=== PATIENT | female | born 1940 | race Caucasian/White ===

== ENCOUNTER → 2017-07-08 | Outpatient (CLI) | payer MEDICARE, OTHER ==
[~2017-07-08] MED LIST: ACET325T14 PO; ACLI400A2 INH; ALBU2.5V11 NEB; ALBU8.5H5 INH; ALEN70TA5 PO; AMIL1TAB PO; AMLO10TA2 PO; ASPI-496 PO; ATOR40TA78 PO; BUDE10.2 INH; CEFD300C37 PO; DEXT1TAB7 PO; FLUT1DIS3 INH; FURO-92 PO; FURO40TA6 PO; GLUC1KIT IM; GLYB5TAB3 PO; GUAI1CAP19 PO; INSU100V13 SQ; INSU100V5 SQ-INSULIN; LOPE2CAP PO; LOSA100T6 PO; METF500T4 PO; METO25TA2 PO; METO50TA82 PO; NICO-586 TD; NYST15PO9 TP; OXYC5TAB3 PO; PANT40TA5 PO; PRED20TA PO; RIVA15TA PO; SITA100T PO; TEMA15CA PO; TERA1CAP3 PO; WARF2TAB7 PO; WARF5TAB7 PO
== END | disposition home or self-care (01) ==
LOC: CVU 10:38
PROVIDERS: ATTEND Internal Medicine Cardiovascular Disease
DX: I25.5 Ischemic cardiomyopathy (principal); E11.9 Type 2 diabetes mellitus without complications; I08.1 Rheumatic disorders of both mitral and tricuspid valves; I10 Essential (primary) hypertension; F17.210 Nicotine dependence, cigarettes, uncomplicated
CPT/HCPCS: 93306

== ENCOUNTER → 2017-11-19 | Outpatient (CLI) | payer MEDICARE, OTHER ==
[~2017-11-19] MED LIST changes: +WARF-36 PO; -WARF2TAB7 PO; +WARF2TAB99 PO; -WARF5TAB7 PO
== END | disposition home or self-care (01) ==
LOC: CVU 13:58
PROVIDERS: ATTEND Surgery
DX: I70.203 Unspecified atherosclerosis of native arteries of extremities, bilateral legs (principal); I10 Essential (primary) hypertension; E11.51 Type 2 diabetes mellitus with diabetic peripheral angiopathy without gangrene; E78.5 Hyperlipidemia, unspecified; J44.9 Chronic obstructive pulmonary disease, unspecified; Z99.81 Dependence on supplemental oxygen; Z87.891 Personal history of nicotine dependence; I70.0 Atherosclerosis of aorta
CPT/HCPCS: 93922; 93925; 93978

== ENCOUNTER → 2017-12-09 | Outpatient (CLI) | payer MEDICARE, OTHER ==
[~2017-12-09] MED LIST changes: +APIX5TAB PO; +CHOL200024 PO; +CYAN250013 PO; +FOLI0.8T2 PO
[2017-12-09 12:35] LABS: BASOPHILS # (AUTO) 0.04 x10^3/uL (0-0.1); BASOPHILS % (AUTO) 0 % (0-1); EOSINOPHILS % (AUTO) 1 % (1-7); LYMPHOCYTES # (AUTO) 2.23 x10^3/uL (1-3.4); LYMPHOCYTES % (AUTO) 18 % (22-44); MD NO; MEAN CORPUSCULAR HEMOGLOBIN 31.9 pg (27.0-34.8); MEAN CORPUSCULAR HGB CONC 33.4 g/dL (32.4-35.8); MEAN CORPUSCULAR VOLUME 95.4 fL (80-100); MEAN PLATELET VOLUME 10.1 fL (7.4-10.4); MONOCYTES # (AUTO) 0.84 x10^3/uL (0.2-0.8); MONOCYTES % (AUTO) 7 % (2-9); NEUTROPHILS # (AUTO) 9.18 x10^3/uL (1.8-6.8); NEUTROPHILS % (AUTO) 74 % (42-75); PLATELET COUNT 134 x10^3/uL (130-400); RED BLOOD COUNT 4.97 x10^6/uL (3.82-5.3); RED CELL DISTRIBUTION WIDTH 15.7 % (9.6-15.2)
[2017-12-09 12:39] LABS: INTERNATIONAL NORMALIZED RATIO 1.01 (0.93-1.1); PROTHROMBIN TIME 10.4 Seconds (9.6-11.5)
[2017-12-09 12:45] LABS: ALBUMIN 3.2 g/dL (3.4-5.0); ANION GAP 5 mmol/L (5-15); CHLORIDE 104 mmol/L (98-107)
[2017-12-09 12:51] LABS: ALANINE AMINOTRANSFERASE 23 U/L (12-78); ALKALINE PHOSPHATASE 93 U/L (45-117); BILIRUBIN,TOTAL 0.8 mg/dL (0.2-1.0); CREATININE 1.37 mg/dL (0.55-1.02); TOTAL PROTEIN 7.4 g/dL (6.4-8.2)
== END | disposition home or self-care (01) ==
LOC: STAR 10:47
PROVIDERS: ATTEND Surgery
DX: Z01.818 Encounter for other preprocedural examination (principal); R94.31 Abnormal electrocardiogram [ECG] [EKG]
CPT/HCPCS: 36415; 80053; 85025; 85610; 85730; 93005

== ENCOUNTER 2018-03-03 12:17 | Inpatient (IN) | payer MEDICARE, OTHER ==
[~2018-03-03] VITALS: Ht 144.8 cm; Wt 70.4 kg
[~2018-03-03 12:17] MED LIST changes: -AMLO10TA2 PO; +AMLO10TA6 PO; -LOSA100T6 PO; +LOSA100T7 PO; +METF500T17 PO; -METF500T4 PO
[2018-03-03] MEDS ORDERED: LACTATED RINGERS 1,000 ML IV SCH ×2 (12:56→19:00)
[2018-03-03] MEDS ORDERED: CARV12.52 PO (12:58)
[2018-03-03] MEDS ORDERED: PROTAMINE SULFATE 10 MG/ML, 5ML ONE (13:01)
[2018-03-03] MEDS ORDERED: HEPARIN 5,000 UNITS/ML, 1ML ONE (13:01)
[2018-03-03] MEDS ORDERED: FENTANYL PF 100 MCG/2ML ONE ×2 (13:01→14:21)
[2018-03-03] MEDS ORDERED: THROMBIN 20,000 UNIT VIAL TP ONE (13:01)
[2018-03-03] MEDS ORDERED: HEPARIN 1,000 UNITS/ML, 30ML ONE (13:02)
[2018-03-03] MEDS ORDERED: GLYCOPYRROLATE 0.2MG/1ML, 5ML ONE (13:04)
[2018-03-03] MEDS ORDERED: CEFAZOLIN 1,000 MG ONE (13:04)
[2018-03-03] MEDS ORDERED: PROPOFOL 10 MG/ML, 20ML ONE (13:04)
[2018-03-03] MEDS ORDERED: NEOSTIGMINE 1 MG/ML, 10ML ONE (13:04)
[2018-03-03] MEDS ORDERED: ONDANSETRON 2MG/ML, 2ML ONE (13:04)
[2018-03-03] MEDS ORDERED: DEXAMETHASONE 4 MG/ML, 1ML ONE (13:04)
[2018-03-03] MEDS ORDERED: ROCURONIUM 10MG/ML,5ML ONE (13:04)
[2018-03-03] MEDS ORDERED: SUCCINYLCHOLINE 20 MG/ML, 10ML ONE (13:04)
[2018-03-03 13:24] VITALS: BP 164/78
[2018-03-03] MEDS ORDERED: METOPROLOL 1 MG/ML, 5ML IV PRN (13:30)
[2018-03-03] MEDS ORDERED: PROMETHAZINE 25 MG/ML, 1ML IM PRN (13:30)
[2018-03-03] MEDS ORDERED: FENTANYL PF 100 MCG/2ML IV PRN (13:30)
[2018-03-03] MEDS ORDERED: OXYcodone 5 MG/5 ML ORAL.SOL UDC PO PRN (13:30)
[2018-03-03] MEDS ORDERED: PROMETHAZINE 25 MG SUPP PR PRN (13:30)
[2018-03-03] MEDS ORDERED: LORazepam 2 MG/ML, 1ML IVPush PRN (13:30)
[2018-03-03] MEDS ORDERED: hydrALAzine 20 MG/ML, 1ML IV PRN (13:30)
[2018-03-03] MEDS ORDERED: MORPHINE SULFATE 4 MG/ML, 1ML IVPush PRN (13:30)
[2018-03-03] MEDS ORDERED: ACETAMINOPHEN 325 MG TABLET PO PRN (13:30)
[2018-03-03] MEDS ORDERED: ONDANSETRON ODT 8 MG PO PRN (13:30)
[2018-03-03] MEDS ORDERED: LABETALOL 5MG/ML, 20ML IV PRN (13:30)
[2018-03-03] MEDS ORDERED: VANCOMYCIN 1,000 MG ONE (13:33)
[2018-03-03] MEDS ORDERED: LIDOCAINE 4%, 4 ML SYR/CANN TP ONE (13:34)
[2018-03-03] MEDS ORDERED: PROMETHAZINE 25 MG/ML, 1ML ONE (14:20)
[2018-03-03] MEDS ORDERED: ACETAMINOPHEN 650 MG/20.3 ML UDC ONE (14:20)
[2018-03-03] MEDS ORDERED: hydrALAzine 20 MG/ML, 1ML ONE (14:20)
[2018-03-03] MEDS ORDERED: LORazepam 2 MG/ML, 1ML ONE (14:21)
[2018-03-03] MEDS ORDERED: ALBUTEROL SULFATE 2.5 MG/3 ML NPPB STA (14:33)
[2018-03-03] MEDS: PROMETHAZINE 25 MG/ML, 1ML IV PRN ×2 (14:36→15:06)
[2018-03-03] MEDS ORDERED: ALBUTEROL SULFATE 2.5 MG/3 ML ONE (15:10)
[2018-03-03] MEDS ORDERED: ONDANSETRON 2MG/ML, 2ML IV PRN (19:00)
[2018-03-03] MEDS ORDERED: morphine SULFATE 10 MG/ML, 1ML IV PRN (19:00)
[2018-03-03] MEDS ORDERED: HYDROcodone/APAP 5/325 TABLET PO PRN (19:00)
[2018-03-03 19:36] VITALS: BP 138/80
[2018-03-03] MEDS ORDERED: ATORVASTATIN 40 MG TABLET PO SCH (21:00)
[2018-03-03] MEDS ORDERED: SODIUM CHLORIDE FLUSH 10ML SYR IVF SCH (21:00)
[2018-03-03] MEDS ORDERED: ACETAMINOPHEN 325 MG TABLET PO SCH (21:00)
[2018-03-03] MEDS ORDERED: INSULIN GLARGINE 100 UNITS/ML, PEN SQ-INSULIN SCH (21:00)
[2018-03-04] MEDS ORDERED: CHOLECALCIFEROL 1,000 UNIT TABLET PO SCH (09:00)
[2018-03-04] MEDS ORDERED: FOLIC ACID 1 MG TABLET PO SCH (09:00)
[2018-03-04] MEDS ORDERED: CARVEDILOL 12.5 MG TABLET PO SCH (09:00)
[2018-03-04] MEDS ORDERED: APIXABAN 5 MG TABLET PO SCH (09:00)
[2018-03-04] MEDS ORDERED: FUROSEMIDE 40 MG TABLET PO SCH (09:00)
[2018-03-04] MEDS ORDERED: LOSARTAN 50MG TABLET PO SCH (09:00)
== END 2018-03-03 20:30 | disposition home or self-care (01) | DRG 581 ==
LOC: ORIP 12:17 → EDSTATUS 14:00 → 4NOR 18:36
PROVIDERS: ADMIT Surgery; ATTEND Surgery
PROC: 0W9F0ZZ Drainage of Abdominal Wall, Open Approach (ICD-10-PCS; principal; 2018-03-03 14:00)
DX: M79.3 Panniculitis, unspecified (principal); E66.9 Obesity, unspecified; J44.9 Chronic obstructive pulmonary disease, unspecified; E11.22 Type 2 diabetes mellitus with diabetic chronic kidney disease; N18.9 Chronic kidney disease, unspecified; I12.9 Hypertensive chronic kidney disease with stage 1 through stage 4 chronic kidney disease, or unspecified chronic kidney disease; M19.90 Unspecified osteoarthritis, unspecified site; Z79.4 Long term (current) use of insulin; Z68.33 Body mass index [BMI] 33.0-33.9, adult; Z99.81 Dependence on supplemental oxygen; Z95.820 Peripheral vascular angioplasty status with implants and grafts
CPT/HCPCS: 82962; 87070; 87075; 87077; 87205; 94640; G0378; J0690; J1100; J1644; J2405; J2550; J2704; J2710; J2720; J3010; J3370; J3490; J7613; J0330; J0360; J2060; J7120

== ENCOUNTER 2018-03-12 14:58 | Inpatient (IN) | payer MEDICARE, OTHER ==
[~2018-03-12] VITALS: Ht 144.8 cm; Wt 69.4 kg
[~2018-03-12 14:58] MED LIST changes: +CARV12.52 PO
[2018-03-12 15:43] LABS: BASOPHILS # (AUTO) 0.06 x10^3/uL (0-0.1); BASOPHILS % (AUTO) 0 % (0-1); EOSINOPHILS # (AUTO) 0.07 x10^3/uL (0-0.4); EOSINOPHILS % (AUTO) 1 % (1-7); LYMPHOCYTES # (AUTO) 1.67 x10^3/uL (1-3.4); LYMPHOCYTES % (AUTO) 12 % (22-44); MD NO; MEAN CORPUSCULAR HEMOGLOBIN 31.7 pg (27.0-34.8); MEAN CORPUSCULAR HGB CONC 33.9 g/dL (32.4-35.8); MEAN CORPUSCULAR VOLUME 93.3 fL (80-100); MEAN PLATELET VOLUME 9.1 fL (7.4-10.4); MONOCYTES # (AUTO) 1.22 x10^3/uL (0.2-0.8); MONOCYTES % (AUTO) 9 % (2-9); NEUTROPHILS # (AUTO) 11.13 x10^3/uL (1.8-6.8); NEUTROPHILS % (AUTO) 79 % (42-75); PLATELET COUNT 159 x10^3/uL (130-400); RED BLOOD COUNT 4.93 x10^6/uL (3.82-5.3); RED CELL DISTRIBUTION WIDTH 14.4 % (9.6-15.2)
[2018-03-12 15:49] LABS: ALBUMIN 2.9 g/dL (3.4-5.0); ANION GAP 6 mmol/L (5-15); CHLORIDE 105 mmol/L (98-107); CREATININE 1.29 mg/dL (0.55-1.02)
[2018-03-12 16:07] LABS: CULTURE INDICATED? NO; MICROSCOPIC NOT IND
[2018-03-12] MEDS ORDERED: VANCOMYCIN PER PHARMACY MC PRN ×2 (17:00→18:30)
[2018-03-12] MEDS ORDERED: VANCOMYCIN 1,400 MG in SODIUM CHLORIDE 0.9% 250 ML IV ONE (17:00)
[2018-03-12] MEDS ORDERED: AMPICILLIN/SULBACTAM 3 GM in SODIUM CHLORIDE 0.9% 100 ML IV ONE (17:00)
[2018-03-12] MEDS ORDERED: PHARMACOKINETIC CONSULTATION MC ONE ×2 (17:00→19:00)
[2018-03-12] MEDS ORDERED: CARV12.52 PO (17:13)
[2018-03-12] MEDS ORDERED: LOSA100T7 PO (17:13)
[2018-03-12] MEDS ORDERED: CLIN300C8 PO (17:13)
[2018-03-12] MEDS ORDERED: hydrALAzine 20 MG/ML, 1ML IV ONE (18:00)
[2018-03-12] MEDS ORDERED: hydrALAzine 20 MG/ML, 1ML ONE (18:18)
[2018-03-12] MEDS ORDERED: ONDANSETRON ODT 4 MG PO PRN (18:30)
[2018-03-12] MEDS ORDERED: VANCOMYCIN 1,000 MG in SODIUM CHLORIDE 0.9% 250 ML IVPB SCH (18:30)
[2018-03-12] MEDS ORDERED: ONDANSETRON 2MG/ML, 2ML IVPush PRN (18:30)
[2018-03-12] MEDS ORDERED: AMPICILLIN/SULBACTAM 3 GM in SODIUM CHLORIDE 0.9% 100 ML IV SCH (18:30)
[2018-03-12] MEDS ORDERED: LABETALOL 5MG/ML, 20ML IVPush PRN (18:30)
[2018-03-12] MEDS ORDERED: hydrALAzine 20 MG/ML, 1ML IVPush PRN (18:30)
[2018-03-12] MEDS ORDERED: DOCUSATE 100 MG CAPSULE PO PRN (18:30)
[2018-03-12] MEDS ORDERED: PHARMACOKINETIC MONITORING MC PRN (19:00)
[2018-03-12 19:12] VITALS: BP 177/78
[2018-03-12 19:35] LABS: HEMOGLOBIN A1C 6.8 % (4.2-6.3)
[2018-03-12] MEDS: ACETAMINOPHEN 325 MG TABLET PO PRN (20:01)
[2018-03-12] MEDS: ATORVASTATIN 40 MG TABLET PO SCH (20:02)
[2018-03-12] MEDS: CARVEDILOL 12.5 MG TABLET PO SCH (20:02)
[2018-03-12] MEDS: NICOTINE 7 MG/24 HR PATCH.TD24 TD SCH (20:28)
[2018-03-12] MEDS: INSULIN REGULAR 100 UNITS/ML, 3ML VIAL SQ-INSULIN SCH (20:40)
[2018-03-12] MEDS: INSULIN GLARGINE 100 UNITS/ML, PEN SQ-INSULIN SCH (22:00)
[2018-03-12 22:10] VITALS: BP 127/63
[2018-03-13 00:48] VITALS: BP 138/68
[2018-03-13] MEDS: ACETAMINOPHEN 325 MG TABLET PO PRN ×5 (02:18→22:47)
[2018-03-13 03:03] LABS: MICROSCOPIC INDICATED
[2018-03-13 03:11] LABS: CULTURE INDICATED? NO
[2018-03-13 05:04] LABS: BASOPHILS # (AUTO) 0.09 x10^3/uL (0-0.1); BASOPHILS % (AUTO) 1 % (0-1); EOSINOPHILS # (AUTO) 0.14 x10^3/uL (0-0.4); EOSINOPHILS % (AUTO) 1 % (1-7); LYMPHOCYTES # (AUTO) 1.97 x10^3/uL (1-3.4); LYMPHOCYTES % (AUTO) 17 % (22-44); MD NO; MEAN CORPUSCULAR HEMOGLOBIN 31.4 pg (27.0-34.8); MEAN CORPUSCULAR HGB CONC 33.5 g/dL (32.4-35.8); MEAN CORPUSCULAR VOLUME 93.7 fL (80-100); MEAN PLATELET VOLUME 9.1 fL (7.4-10.4); MONOCYTES % (AUTO) 11 % (2-9); NEUTROPHILS # (AUTO) 8.06 x10^3/uL (1.8-6.8); NEUTROPHILS % (AUTO) 70 % (42-75); PLATELET COUNT 155 x10^3/uL (130-400); RED CELL DISTRIBUTION WIDTH 14.4 % (9.6-15.2)
[2018-03-13 05:14] LABS: ANION GAP 7 mmol/L (5-15); CALCIUM 8.2 mg/dL (8.5-10.1); CHLORIDE 108 mmol/L (98-107); CREATININE 1.44 mg/dL (0.55-1.02)
[2018-03-13 05:24] LABS: THYROID STIMULATING HORMONE 0.953 mIU/L (0.358-3.740)
[2018-03-13] MEDS: INSULIN REGULAR 100 UNITS/ML, 3ML VIAL SQ-INSULIN SCH ×4 (05:44→20:00)
[2018-03-13 07:07] VITALS: BP 148/75
[2018-03-13] MEDS ORDERED: FUROSEMIDE 40 MG TABLET PO SCH (09:00)
[2018-03-13] MEDS ORDERED: SODIUM CHLORIDE 0.9% 1,000 ML IV ONE (09:00)
[2018-03-13] MEDS: FOLIC ACID 1 MG TABLET PO SCH (09:00)
[2018-03-13] MEDS: CYANOCOBALAMIN 1,000 MCG TABLET PO SCH (09:00)
[2018-03-13] MEDS: CARVEDILOL 12.5 MG TABLET PO SCH ×2 (09:00→19:43)
[2018-03-13] MEDS: LOSARTAN 50MG TABLET PO SCH (09:00)
[2018-03-13] MEDS: LINAGLIPTIN 5 MG TAB PO SCH (09:00)
[2018-03-13] MEDS: INSULIN GLARGINE 100 UNITS/ML, PEN SQ-INSULIN SCH ×2 (09:00→20:00)
[2018-03-13] MEDS: CHOLECALCIFEROL 1,000 UNIT TABLET PO SCH (09:00)
[2018-03-13 14:01] VITALS: BP 151/79
[2018-03-13] MEDS ORDERED: MORPHINE SULFATE 4 MG/ML, 1ML ONE (14:20)
[2018-03-13] MEDS ORDERED: MORPHINE SULFATE 4 MG/ML, 1ML IVPush ONE (14:30)
[2018-03-13] MEDS ORDERED: AMPICILLIN/SULBACTAM 3 GM in SODIUM CHLORIDE 0.9% 100 ML IV SCH (17:00)
[2018-03-13] MEDS: CLINDAMYCIN 300 MG CAPSULE PO SCH ×2 (18:14→23:09)
[2018-03-13 19:25] VITALS: BP 172/71
[2018-03-13] MEDS: ATORVASTATIN 40 MG TABLET PO SCH (19:42)
[2018-03-13] MEDS: NICOTINE 7 MG/24 HR PATCH.TD24 TD SCH (19:42)
[2018-03-13] MEDS: APIXABAN 5 MG TABLET PO SCH (19:43)
[2018-03-13 21:59] VITALS: BP 157/72
[2018-03-14 01:00] VITALS: BP 163/78
[2018-03-14] MEDS ORDERED: VANCOMYCIN 1,400 MG in SODIUM CHLORIDE 0.9% 250 ML IV SCH ×2 (05:00→17:00)
[2018-03-14] MEDS: ACETAMINOPHEN 325 MG TABLET PO PRN ×4 (05:15→21:49)
[2018-03-14] MEDS: CLINDAMYCIN 300 MG CAPSULE PO SCH ×4 (05:15→23:50)
[2018-03-14 05:19] LABS: CHLORIDE 109 mmol/L (98-107)
[2018-03-14 05:43] LABS: ALBUMIN 2.2 g/dL (3.4-5.0); ANION GAP 8 mmol/L (5-15); CALCIUM 8.3 mg/dL (8.5-10.1); CREATININE 1.08 mg/dL (0.55-1.02)
[2018-03-14] MEDS: INSULIN REGULAR 100 UNITS/ML, 3ML VIAL SQ-INSULIN SCH ×4 (06:33→21:56)
[2018-03-14 07:22] VITALS: BP 162/74
[2018-03-14] MEDS: INSULIN GLARGINE 100 UNITS/ML, PEN SQ-INSULIN SCH ×2 (08:37→22:14)
[2018-03-14] MEDS: APIXABAN 5 MG TABLET PO SCH ×2 (08:38→21:48)
[2018-03-14] MEDS: CARVEDILOL 12.5 MG TABLET PO SCH ×2 (08:38→21:49)
[2018-03-14] MEDS: FOLIC ACID 1 MG TABLET PO SCH (08:38)
[2018-03-14] MEDS: CHOLECALCIFEROL 1,000 UNIT TABLET PO SCH (08:38)
[2018-03-14] MEDS: LOSARTAN 50MG TABLET PO SCH (08:38)
[2018-03-14] MEDS: LINAGLIPTIN 5 MG TAB PO SCH (08:39)
[2018-03-14] MEDS: CYANOCOBALAMIN 1,000 MCG TABLET PO SCH (08:41)
[2018-03-14 14:08] VITALS: BP 149/70
[2018-03-14 19:14] VITALS: BP 166/80
[2018-03-14] MEDS: ATORVASTATIN 40 MG TABLET PO SCH (21:49)
[2018-03-14] MEDS: NICOTINE 7 MG/24 HR PATCH.TD24 TD SCH (21:49)
[2018-03-15 02:12] VITALS: BP 159/71
[2018-03-15] MEDS: ACETAMINOPHEN 325 MG TABLET PO PRN ×5 (02:29→20:44)
[2018-03-15] MEDS: CLINDAMYCIN 300 MG CAPSULE PO SCH ×3 (05:52→18:38)
[2018-03-15] MEDS: INSULIN REGULAR 100 UNITS/ML, 3ML VIAL SQ-INSULIN SCH ×4 (07:00→20:58)
[2018-03-15 07:34] VITALS: BP 163/63
[2018-03-15] MEDS: CHOLECALCIFEROL 1,000 UNIT TABLET PO SCH (10:00)
[2018-03-15] MEDS: CYANOCOBALAMIN 1,000 MCG TABLET PO SCH (10:00)
[2018-03-15] MEDS: LINAGLIPTIN 5 MG TAB PO SCH (10:00)
[2018-03-15] MEDS: CARVEDILOL 12.5 MG TABLET PO SCH ×2 (10:01→20:45)
[2018-03-15] MEDS: APIXABAN 5 MG TABLET PO SCH ×2 (10:01→20:44)
[2018-03-15] MEDS: FOLIC ACID 1 MG TABLET PO SCH (10:01)
[2018-03-15] MEDS: LOSARTAN 50MG TABLET PO SCH (10:01)
[2018-03-15] MEDS: INSULIN GLARGINE 100 UNITS/ML, PEN SQ-INSULIN SCH ×2 (10:06→21:51)
[2018-03-15 12:49] VITALS: BP 157/68
[2018-03-15 20:30] VITALS: BP 184/72
[2018-03-15] MEDS: ATORVASTATIN 40 MG TABLET PO SCH (20:45)
[2018-03-15] MEDS: NICOTINE 7 MG/24 HR PATCH.TD24 TD SCH (20:45)
[2018-03-15 22:09] VITALS: BP 172/86
[2018-03-16] MEDS: CLINDAMYCIN 300 MG CAPSULE PO SCH ×4 (00:29→17:46)
[2018-03-16] MEDS: ACETAMINOPHEN 325 MG TABLET PO PRN ×4 (00:36→17:46)
[2018-03-16 02:35] VITALS: BP 168/65
[2018-03-16] MEDS: INSULIN REGULAR 100 UNITS/ML, 3ML VIAL SQ-INSULIN SCH ×3 (06:30→16:00)
[2018-03-16 07:19] VITALS: BP 151/67
[2018-03-16] MEDS ORDERED: AMLODIPINE 5 MG TABLET PO SCH (09:00)
[2018-03-16] MEDS: CHOLECALCIFEROL 1,000 UNIT TABLET PO SCH (09:31)
[2018-03-16] MEDS: APIXABAN 5 MG TABLET PO SCH (09:31)
[2018-03-16] MEDS: CARVEDILOL 12.5 MG TABLET PO SCH (09:32)
[2018-03-16] MEDS: LINAGLIPTIN 5 MG TAB PO SCH (09:32)
[2018-03-16] MEDS: FOLIC ACID 1 MG TABLET PO SCH (09:32)
[2018-03-16] MEDS: LOSARTAN 50MG TABLET PO SCH (09:33)
[2018-03-16] MEDS: CYANOCOBALAMIN 1,000 MCG TABLET PO SCH (09:41)
[2018-03-16] MEDS: INSULIN GLARGINE 100 UNITS/ML, PEN SQ-INSULIN SCH (09:42)
[2018-03-16] MEDS ORDERED: MORPHINE SULFATE 4 MG/ML, 1ML ONE (10:38)
[2018-03-16 12:51] VITALS: BP 145/67
[2018-03-16] MEDS ORDERED: AMLO5TAB7 PO (14:10)
[2018-03-16] MEDS ORDERED: CARV12.543 PO (14:10)
[2018-03-16] MEDS ORDERED: CLIN300C8 PO (14:10)
[2018-03-16 19:49] VITALS: BP 167/68
== END 2018-03-16 20:40 | disposition home health service (06) | DRG 862 ==
LOC: ED 16:59 → EDIP 17:00 → ED 17:19 → 4NOR 18:16
PROVIDERS: ADMIT Internal Medicine; ATTEND Internal Medicine
DX: T81.4XXA Infection following a procedure, initial encounter (principal); A41.9 Sepsis, unspecified organism; I13.0 Hypertensive heart and chronic kidney disease with heart failure and stage 1 through stage 4 chronic kidney disease, or unspecified chronic kidney disease; L03.314 Cellulitis of groin; A46 Erysipelas; E11.22 Type 2 diabetes mellitus with diabetic chronic kidney disease; E11.51 Type 2 diabetes mellitus with diabetic peripheral angiopathy without gangrene; E78.00 Pure hypercholesterolemia, unspecified; E78.5 Hyperlipidemia, unspecified; F17.210 Nicotine dependence, cigarettes, uncomplicated; I16.0 Hypertensive urgency; Y83.8 Other surgical procedures as the cause of abnormal reaction of the patient, or of later complication, without mention of misadventure at the time of the procedure; I50.9 Heart failure, unspecified; J44.9 Chronic obstructive pulmonary disease, unspecified; N18.9 Chronic kidney disease, unspecified; Z79.01 Long term (current) use of anticoagulants; Z79.4 Long term (current) use of insulin; Z86.718 Personal history of other venous thrombosis and embolism; Z90.710 Acquired absence of both cervix and uterus; Z90.5 Acquired absence of kidney; Z90.49 Acquired absence of other specified parts of digestive tract; Z82.49 Family history of ischemic heart disease and other diseases of the circulatory system; Z83.3 Family history of diabetes mellitus; Y92.89 Other specified places as the place of occurrence of the external cause
CPT/HCPCS: 36415; 80048; 80069; 81001; 81003; 82040; 82962; 83036; 84443; 85025; 87040; 87070; 87077; 87186; 87205; 99285; G0378; J0295; J1815; J2405; J3370; J0360; J7050

== ENCOUNTER → 2018-11-04 | Outpatient (CLI) | payer MEDICARE, OTHER ==
[~2018-11-04] MED LIST changes: -ALEN70TA5 PO; +ALEN70TA6 PO; +AMLO-150 PO; -AMLO10TA6 PO; +AMLO10TA8 PO; +CARV12.543 PO; +CLIN300C8 PO; +LOSA100T14 PO; -LOSA100T7 PO
== END | disposition home or self-care (01) ==
LOC: CVU 08:49
PROVIDERS: ATTEND Surgery
DX: I70.203 Unspecified atherosclerosis of native arteries of extremities, bilateral legs (principal); R20.0 Anesthesia of skin; E11.9 Type 2 diabetes mellitus without complications; I10 Essential (primary) hypertension; E78.5 Hyperlipidemia, unspecified; J44.9 Chronic obstructive pulmonary disease, unspecified
CPT/HCPCS: 93922; 93925

== ENCOUNTER → 2018-12-30 | Outpatient (CLI) | payer MEDICARE, OTHER | END | disposition home or self-care (01) | LOC: CFH 10:20 | PROVIDERS: ATTEND Internal Medicine Cardiovascular Disease | DX: I08.0 Rheumatic disorders of both mitral and aortic valves (principal); I70.268 Atherosclerosis of native arteries of extremities with gangrene, other extremity; I25.10 Atherosclerotic heart disease of native coronary artery without angina pectoris; I25.5 Ischemic cardiomyopathy; I11.0 Hypertensive heart disease with heart failure; I50.9 Heart failure, unspecified; E78.5 Hyperlipidemia, unspecified; E11.9 Type 2 diabetes mellitus without complications; J44.9 Chronic obstructive pulmonary disease, unspecified; F17.200 Nicotine dependence, unspecified, uncomplicated; Z85.41 Personal history of malignant neoplasm of cervix uteri; Z79.899 Other long term (current) drug therapy | CPT/HCPCS: 93306 ==

== ENCOUNTER → 2020-01-12 | Outpatient (CLI) | payer MEDICARE, OTHER ==
[~2020-01-12] MED LIST changes: -ACLI400A2 INH; +ACLI400A3 INH
== END | disposition home or self-care (01) ==
LOC: CFH 11:48
PROVIDERS: ATTEND Internal Medicine Cardiovascular Disease
DX: I34.0 Nonrheumatic mitral (valve) insufficiency (principal); I35.0 Nonrheumatic aortic (valve) stenosis
CPT/HCPCS: 93306

== ENCOUNTER 2021-02-20 13:21 | Emergency (ER) | payer MEDICARE, OTHER ==
[~2021-02-20] VITALS: Ht 144.8 cm; Wt 71.3 kg
[~2021-02-20 13:21] MED LIST changes: -ALEN70TA6 PO; +ALEN70TA77 PO; +AMLO-211 PO; -AMLO10TA8 PO; -CLIN300C8 PO; +CLIN300C9 PO; -FOLI0.8T2 PO; +FOLI0.8T5 PO; -OXYC5TAB3 PO; +OXYC5TAB98 PO; -PANT40TA5 PO; +PANT40TA6 PO
[2021-02-20] MEDS ORDERED: SODIUM CHLORIDE FLUSH 10ML SYR IVF ONE (14:30)
[2021-02-20 14:42] LABS: BASOPHILS % (AUTO) 1 % (0-1); EOSINOPHILS % (AUTO) 1 % (1-7); LYMPHOCYTES % (AUTO) 17 % (22-44); MEAN CORPUSCULAR HEMOGLOBIN 31.3 pg (27.0-34.8); MEAN CORPUSCULAR HGB CONC 34.1 g/dL (32.4-35.8); MEAN PLATELET VOLUME 9.6 fL (7.4-10.4); MONOCYTES % (AUTO) 8 % (2-9); NEUTROPHILS % (AUTO) 74 % (42-75); PLATELET COUNT 134 x10^3/uL (130-400); RED CELL DISTRIBUTION WIDTH 15.4 % (9.6-15.2)
[2021-02-20 14:54] LABS: ALANINE AMINOTRANSFERASE 20 U/L (12-78); ALBUMIN 2.6 g/dL (3.4-5.0); ANION GAP 4 mmol/L (5-15); CALCIUM 8.9 mg/dL (8.5-10.1); CHLORIDE 105 mmol/L (98-107); CREATININE 1.08 mg/dL (0.55-1.02)
[2021-02-20 14:56] LABS: ALKALINE PHOSPHATASE 86 U/L (45-117); BILIRUBIN,TOTAL 0.8 mg/dL (0.2-1.0); TOTAL PROTEIN 6.8 g/dL (6.4-8.2)
--- NOTE | 2021-02-20 15:11 | NUR ---
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
--- NOTE | 2021-02-20 15:14 | NUR ---
PT AMBULATORY TO ROOM FROM [facility], CHANGED INTO GOWN, MONITORS IN PLACE. PT C/O L-ARM WEAKNESS/PARALYSIS STARTING THIS MORNING. FACE SYMMETRICAL, NO OTHER NEURO DEFICITS NOTED. CALL LIGHT WITHIN REACH, FAMILY AT BS
--- NOTE | 2021-02-20 15:58 | NUR ---
AWAITING IV FOR CONTRAST CT
--- NOTE | 2021-02-20 16:18 | NUR ---
erp at bs for eval
[2021-02-20] MEDS ORDERED: ALBUTEROL/IPRATROPIUM 2.5MG/0.5MG, 3 ML NPPB ONE (16:30)
--- NOTE | 2021-02-20 16:37 | NUR ---
PT TO CT
--- NOTE | 2021-02-20 16:51 | NUR ---
pt back from ct
[2021-02-20] MEDS ORDERED: ALBUTEROL/IPRATROPIUM 2.5MG/0.5MG, 3 ML ONE (16:58)
[2021-02-20] MEDS ORDERED: OMNIPAQUE 350 MG/ML, 100ML BOTTLE ONE (17:00)
--- NOTE | 2021-02-20 17:08 | NUR ---
(ANNIE VENEGASR, DAUGHTER) Addendum: 02/20/21 at 1709 by [email or web address] [phone] (ANNIE VENEGASR, DAUGHTER) DEE WOLFE [phone] (DAUGHTER)
--- NOTE | 2021-02-20 17:08 | NUR ---
ERP AT BS
--- NOTE | 2021-02-20 17:22 | NUR ---
assumed care of patient from patt de oliveira rn. patient resting comfortably no needs at this time
--- NOTE | 2021-02-20 17:42 | NUR ---
PATIENT PLACED ON A HOSPITAL BED AT THIS TIME
[2021-02-20 17:44] LABS: INTERNATIONAL NORMALIZED RATIO 1.07 (0.93-1.1); PROTHROMBIN TIME 11.4 Seconds (9.6-11.5)
[2021-02-20] MEDS ORDERED: INSTRUCTION SEE COMMENTS XX ONE ×2 (18:00→19:30)
[2021-02-20] MEDS ORDERED: PHARMACY INSTRUCTION MC PRN (18:30)
--- NOTE | 2021-02-20 18:45 | NUR ---
REPORT FROM MATHIEU PRICE AT THIS TIME. PT TO CT VIA HOSPITAL BED AT THIS TIME.
[2021-02-20] MEDS ORDERED: LABETALOL 5MG/ML, 20ML IV PRN (19:30)
[2021-02-20] MEDS ORDERED: HYDROcodone/APAP 5/325 TABLET PO PRN (19:30)
[2021-02-20] MEDS ORDERED: SENNA/DOCUSATE TABLET PO PRN (19:30)
[2021-02-20] MEDS ORDERED: ACETAMINOPHEN 325 MG TABLET PO PRN (19:30)
[2021-02-20] MEDS ORDERED: ONDANSETRON 2MG/ML, 2ML IVPush PRN (19:30)
[2021-02-20] MEDS ORDERED: GADOTERATE 7.5 MMOL/15ML SYR ONE (19:34)
[2021-02-20] MEDS ORDERED: ATORVASTATIN 80 MG TABLET PO SCH (21:00)
--- NOTE | 2021-02-20 21:02 | NUR ---
REPORT TO MATHIEU GIBBS.
[2021-02-20] MEDS ORDERED: ATORVASTATIN 80 MG TABLET ONE (21:27)
--- NOTE | 2021-02-20 22:10 | NUR ---
pt assisted to bsc, able to stand and pivot on own. given sandwich & juices. denies any other needs. will ctm.
--- NOTE | 2021-02-20 22:17 | NUR ---
DR WORKMAN AT BS. ROBEL XIONG FOR ORDERS
[2021-02-20] MEDS ORDERED: NICOTINE 14MG/24 HR PATCH.TD24 TD SCH (23:00)
[2021-02-20] MEDS ORDERED: CARVEDILOL 12.5 MG TABLET ONE (23:06)
[2021-02-20] MEDS ORDERED: NICOTINE 14MG/24 HR PATCH.TD24 ONE (23:06)
[2021-02-20] MEDS: INSULIN GLARGINE 100 UNITS/ML, PEN SQ-INSULIN SCH (23:50)
[2021-02-20] MEDS: CARVEDILOL 25 MG TABLET PO SCH (23:50)
--- NOTE | 2021-02-21 03:46 | NUR ---
PT UP TO BSC C ASSISTANCE. DENIES ANY OTHER NEEDS. WILL CTM.
--- NOTE | 2021-02-21 04:03 | NUR ---
RECEIVED BS REPORT FROM MATHIEU GIBBS TO ASSUME CARE OF PT. AT THIS TIME.
[2021-02-21 05:07] LABS: ANION GAP 4 mmol/L (5-15); CALCIUM 8.2 mg/dL (8.5-10.1); CHLORIDE 106 mmol/L (98-107)
[2021-02-21 05:11] LABS: CHOL/HDL RATIO 2.5; CHOLESTEROL, TOTAL 120 mg/dL (140-239); CREATININE 1.15 mg/dL (0.55-1.02); HDL CHOL % 40 % (28-40); HDL CHOLESTEROL (DIRECT) 48 mg/dL (40-60); LDL CHOLESTEROL,CALCULATED 47 mg/dL (54-169); TRIGLYCERIDES 127 mg/dL (50-200); VLDL CHOLESTEROL 25 mg/dL (0-25)
--- NOTE | 2021-02-21 05:23 | NUR ---
PT. RETURNED FROM CT VIA W/C AT THIS TIME. ALL MONITORS REPLACED. PT. WAS ABLE TO STAND AND PIVOT FROM W/C BACK TO HOSPITAL BED. NEURO ASSESSMENT REMAINS UNCHANGED FROM INITIAL ASSESSMENT BY THIS RN. PT. DENIES NEEDS. ALL SAFETY MEASURES OBSERVED.
--- NOTE | 2021-02-21 07:00 | NUR ---
REPORT RECEIVED, CARE ASSUMED. PT AWAKE, FOLLOWS COMMANDS. LEFT ARM WEAKER THAN RIGHT, DIFFICULTY GRIPING AND RAISING ARM. PT SWALLOWING PO FLUIDS WITHOUT DIFFICULTY. BREAKFAST TRAY REQUESTED BY NIGHT RN. PT SR PER MONITOR. NO NEEDS EXPRESSED AT THIS TIME.
[2021-02-21] MEDS ORDERED: hydrALAzine 20 MG/ML, 1ML IV PRN (07:30)
[2021-02-21] MEDS ORDERED: LABETALOL 5MG/ML, 20ML IV PRN (07:30)
[2021-02-21] MEDS ORDERED: FUROSEMIDE 40 MG TABLET ONE (08:39)
[2021-02-21] MEDS ORDERED: ALBUTEROL/IPRATROPIUM 2.5MG/0.5MG, 3 ML ONE (08:40)
[2021-02-21] MEDS ORDERED: AMLODIPINE 10 MG TAB ONE (08:40)
[2021-02-21] MEDS ORDERED: CARVEDILOL 12.5 MG TABLET ONE (08:40)
[2021-02-21] MEDS ORDERED: BUDESONIDE 0.5 MG/2 ML INHA ONE (08:40)
[2021-02-21] MEDS: CARVEDILOL 25 MG TABLET PO SCH (08:54)
[2021-02-21] MEDS ORDERED: AMLODIPINE 5 MG TABLET ONE (08:56)
[2021-02-21] MEDS ORDERED: AMLODIPINE 5 MG TABLET PO SCH ×2 (09:00)
[2021-02-21] MEDS ORDERED: LOSARTAN 50MG TABLET PO SCH ×2 (09:00)
[2021-02-21] MEDS ORDERED: FUROSEMIDE 40 MG TABLET PO SCH (09:00)
[2021-02-21] MEDS: INSULIN GLARGINE 100 UNITS/ML, PEN SQ-INSULIN SCH (09:07)
--- NOTE | 2021-02-21 09:13 | NUR ---
PT MEDICATED ORDERED. PT TO HAVE RT TX AFTER BREAKFAST. NO CHANGES IN NEURO STATUS NOTED. PT GAVE PERMISSION TO SPEAK WITH HER DAUGHTERS DEE AND CB. NO ADDITIONAL NEEDS EXPRESSED AT THIS TIME.
--- NOTE | 2021-02-21 09:15 | NUR ---
DR DANIELS AT BEDSIDE TO EVAL PT
--- NOTE | 2021-02-21 09:36 | NUR ---
PTS DAUGHTER CB AT BEDSIDE.
[2021-02-21] MEDS: ALBUTEROL/IPRATROPIUM 2.5MG/0.5MG, 3 ML NPPB SCH ×2 (09:44→21:00)
[2021-02-21] MEDS: BUDESONIDE 0.5 MG/2 ML INHA NPPB SCH ×2 (09:44→21:00)
--- NOTE | 2021-02-21 09:46 | NUR ---
ROBB RT, AT BEDSIDE FOR RT TX
--- NOTE | 2021-02-21 10:13 | NUR ---
PT UP TO BSC, ABLE TO STAND AND PIVOT. NO CHANGE IN NEURO STATUS NOTED. PTS DAUGHTER AT BEDSIDE.
--- NOTE | 2021-02-21 10:32 | NUR ---
SPEECH THERAPIST AT BEDSIDE TO TIM VILLAREAL
--- NOTE | 2021-02-21 11:55 | NUR ---
RECEIVED REPORT FROM MATHIEU ARMSTRONG. PT RESTING ON HOSPITAL BED. NADN. MONITORS REMAIN IN PLACE. NADN. VSS. ASSESSMENT COMPLETE.
--- NOTE | 2021-02-21 12:35 | NUR ---
PT PROVIDED W/ LUNCH TRAY.
--- NOTE | 2021-02-21 12:48 | NUR ---
PT RESTING IN BED. NADN. VSS.
--- NOTE | 2021-02-21 13:49 | NUR ---
PT RESTING IN BED. NADN. VSS.
--- NOTE | 2021-02-21 14:14 | NUR ---
PT PROVIDED W/ DC PAPERWORK. ALL QUESTIONS ASKED. AWARE OF S/SX TO LOOK FOR AND WHEN TO RETURN TO ED. PT AWARE OF IMPORTANCE TO F/U W/ NEUROLOGIST. PT STATES SHE HAS A PORTABLE O2 TANK AND HER DAUGHTER WILL COME PICK HER UP.
--- NOTE | 2021-02-21 14:18 | NUR ---
PT ALSO EDUCATED DURING DC TO STOP TAKING ELIQUIS.
[2021-02-21 14:53] VITALS: BP 131/81
--- NOTE | 2021-02-21 14:53 | NUR ---
PT RESTING IN BED. NADN. WAITING ON PT'S RIDE FOR PT TO BE DISCHARGED.
[2021-02-22] MEDS ORDERED: AMLODIPINE 10 MG TAB PO SCH (09:00)
== END 2021-02-21 13:55 | disposition still patient (30) ==
LOC: ED 15:41 → UNDOADMIN 17:38 → EDIP 17:38 → ED 02-21 13:55
DX: I62.9 Nontraumatic intracranial hemorrhage, unspecified (principal); I68.0 Cerebral amyloid angiopathy; I11.0 Hypertensive heart disease with heart failure; I50.9 Heart failure, unspecified; G47.33 Obstructive sleep apnea (adult) (pediatric); R94.31 Abnormal electrocardiogram [ECG] [EKG]; E11.9 Type 2 diabetes mellitus without complications; I25.10 Atherosclerotic heart disease of native coronary artery without angina pectoris; I73.9 Peripheral vascular disease, unspecified; Z86.718 Personal history of other venous thrombosis and embolism
CPT/HCPCS: 36415; 70450; 70544; 70553; 71045; 72126; 80048; 80053; 80061; 82962; 83036; 85025; 85610; 92523; 93005; 94640; 99291; A9575; J1815; J7050; J7626; Q9967; 99285

== ENCOUNTER 2021-03-01 11:58 | Inpatient (IN) | payer MEDICARE, OTHER ==
[~2021-03-01] VITALS: Ht 144.8 cm; Wt 70.3 kg
--- NOTE | 2021-03-01 14:40 | NUR ---
PT TO ROOM VIA [facility]/WALL.
--- NOTE | 2021-03-01 14:55 | NUR ---
TWO PERSON ASSIST UP TO BSC. PT UNABLE TO MOVE LUE, SEVERE WEAKNESS TO LLE AND UNABLE TO BEAR WEIGHT. PER PT, SEVERE WEAKNESS TO LEFT LEG ONSET FRIDAY. CALL LIGHT WITHIN REACH, FAMILY AT BS.
[2021-03-01 15:36] LABS: BASOPHILS % (AUTO) 1 % (0-1); EOSINOPHILS % (AUTO) 1 % (1-7); LYMPHOCYTES % (AUTO) 20 % (22-44); MEAN CORPUSCULAR HEMOGLOBIN 30.3 pg (27.0-34.8); MEAN CORPUSCULAR HGB CONC 32.6 g/dL (32.4-35.8); MEAN PLATELET VOLUME 9.2 fL (7.4-10.4); MONOCYTES % (AUTO) 9 % (2-9); NEUTROPHILS % (AUTO) 70 % (42-75); PLATELET COUNT 131 x10^3/uL (130-400); RED BLOOD COUNT 4.96 x10^6/uL (3.82-5.3); RED CELL DISTRIBUTION WIDTH 15.5 % (9.6-15.2)
--- NOTE | 2021-03-01 15:40 | NUR ---
PT BACK FROM CT. EKG COMPLETED AT BS. CALL LIGHT WITHIN REACH.
[2021-03-01 15:49] LABS: ALBUMIN 2.5 g/dL (3.4-5.0); ANION GAP 0 mmol/L (5-15); CALCIUM 8.8 mg/dL (8.5-10.1); CHLORIDE 106 mmol/L (98-107); CREATININE 1.09 mg/dL (0.55-1.02)
[2021-03-01 15:53] LABS: TROPONIN I < 0.015 ng/mL (0.000-0.045)
--- NOTE | 2021-03-01 16:00 | NUR ---
CT READ BACK, ERP NOTIFIED OF FINDING.
[2021-03-01] MEDS ORDERED: LABETALOL 5MG/ML, 20ML ONE (16:27)
[2021-03-01] MEDS ORDERED: LABETALOL 5MG/ML, 20ML IVPush PRN (16:30)
--- NOTE | 2021-03-01 16:30 | NUR ---
VS RECHECKED, SBP 157. PER ORDER, LABETALOL HELD. PT AND FAMILY UPDATED ON RESULTS/POC. MED REC COMPLETED. PT ASSISTED IN REPOSITIONING IN BED. CALL LIGHT WITHIN REACH.
[2021-03-01] MEDS ORDERED: ATOR40TA78 PO (16:36)
[2021-03-01 16:40] LABS: INTERNATIONAL NORMALIZED RATIO 0.99 (0.93-1.1); PROTHROMBIN TIME 10.6 Seconds (9.6-11.5)
[2021-03-01] MEDS ORDERED: INSTRUCTION SEE COMMENTS XX ONE (17:30)
[2021-03-01] MEDS ORDERED: POLYETHYLENE GLYCOL 17 GM PACKET PO PRN (17:30)
--- NOTE | 2021-03-01 17:39 | NUR ---
[facility] IN TO SEE PT.
--- NOTE | 2021-03-01 18:01 | NUR ---
GENET PLACED. FAMILY AT BS. AWAITING ADMIT BED.
--- NOTE | 2021-03-01 18:20 | NUR ---
ATTEMPT TO CALL REPORT, RN UNAVAILABLE-WILL CALL BACK.
--- NOTE | 2021-03-01 18:30 | NUR ---
REPORT TO DIONNA MENDEZ READY FOR TRANSPORT.
[2021-03-01] MEDS: LABETALOL 5MG/ML, 20ML IVPush PRN (18:45)
--- NOTE | 2021-03-01 18:49 | NUR ---
VS UPDATED, BP 174/76. LABETOLOL GIVEN PER EMAR. CONTINUE TO AWAIT TRANSPORT.
[2021-03-01 20:30] VITALS: BP 171/76
[2021-03-01] MEDS: INSULIN LISPRO 100 UNITS/ML, PEN SQ-INSULIN SCH (21:00)
[2021-03-01] MEDS ORDERED: INSULIN GLARGINE 100 UNITS/ML, PEN SQ-INSULIN SCH (21:00)
[2021-03-01] MEDS: LOSARTAN 50MG TABLET PO SCH (21:18)
[2021-03-01] MEDS: ATORVASTATIN 40 MG TABLET PO SCH (21:18)
[2021-03-01] MEDS: CARVEDILOL 25 MG TABLET PO SCH (21:19)
[2021-03-01 21:23] VITALS: BP 180/75
[2021-03-01 22:19] VITALS: BP 147/80
[2021-03-01] MEDS: INSULIN GLARGINE 100 UNITS/ML, PEN SQ-INSULIN SCH (22:22)
[2021-03-02] VITALS (12 sets, daily range): BP systolic 130–159; BP diastolic 67–82
[2021-03-02] MEDS: ACETAMINOPHEN 325 MG TABLET PO PRN ×2 (02:50→22:27)
[2021-03-02] MEDS: INSULIN LISPRO 100 UNITS/ML, PEN SQ-INSULIN SCH ×4 (07:59→21:37)
[2021-03-02] MEDS: SENNA/DOCUSATE TABLET PO SCH (08:00)
[2021-03-02] MEDS: FUROSEMIDE 40 MG TABLET PO SCH (08:01)
[2021-03-02] MEDS: CARVEDILOL 25 MG TABLET PO SCH ×2 (08:01→21:35)
[2021-03-02] MEDS: LOSARTAN 50MG TABLET PO SCH ×2 (08:01→21:35)
[2021-03-02] MEDS: INSULIN GLARGINE 100 UNITS/ML, PEN SQ-INSULIN SCH ×2 (08:02→21:38)
[2021-03-02] MEDS ORDERED: GADOTERATE 7.5 MMOL/15ML SYR ONE (09:33)
[2021-03-02 12:06] LABS: ALBUMIN 2.4 g/dL (3.4-5.0); BILIRUBIN, DIRECT 0.1 mg/dL (0.1-0.2)
[2021-03-02 12:21] LABS: BILIRUBIN,INDIRECT 0.5 mg/dL (0.0-2.0); BILIRUBIN,TOTAL 0.6 mg/dL (0.2-1.0); TOTAL PROTEIN 6.5 g/dL (6.4-8.2)
[2021-03-02] MEDS: ATORVASTATIN 40 MG TABLET PO SCH (21:00)
[2021-03-03] VITALS (7 sets, daily range): BP systolic 111–173; BP diastolic 47–98
[2021-03-03 05:20] LABS: BASOPHILS % (AUTO) 1 % (0-1); EOSINOPHILS % (AUTO) 1 % (1-7); LYMPHOCYTES % (AUTO) 17 % (22-44); MEAN CORPUSCULAR HEMOGLOBIN 31.4 pg (27.0-34.8); MEAN CORPUSCULAR HGB CONC 33.8 g/dL (32.4-35.8); MEAN PLATELET VOLUME 9.6 fL (7.4-10.4); MONOCYTES % (AUTO) 11 % (2-9); NEUTROPHILS % (AUTO) 71 % (42-75); PLATELET COUNT 115 x10^3/uL (130-400); RED BLOOD COUNT 4.77 x10^6/uL (3.82-5.3); RED CELL DISTRIBUTION WIDTH 15.4 % (9.6-15.2)
[2021-03-03 05:38] LABS: ALANINE AMINOTRANSFERASE 16 U/L (12-78); ALBUMIN 2.4 g/dL (3.4-5.0); ANION GAP 5 mmol/L (5-15); CALCIUM 8.8 mg/dL (8.5-10.1); CHLORIDE 107 mmol/L (98-107); CREATININE 1.05 mg/dL (0.55-1.02)
[2021-03-03 05:39] LABS: ALKALINE PHOSPHATASE 75 U/L (45-117); BILIRUBIN,TOTAL 0.5 mg/dL (0.2-1.0); TOTAL PROTEIN 6.4 g/dL (6.4-8.2)
[2021-03-03] MEDS: INSULIN LISPRO 100 UNITS/ML, PEN SQ-INSULIN SCH ×4 (07:00→21:19)
[2021-03-03] MEDS: SENNA/DOCUSATE TABLET PO SCH (09:00)
[2021-03-03] MEDS: LOSARTAN 50MG TABLET PO SCH ×2 (09:33→21:19)
[2021-03-03] MEDS: CARVEDILOL 25 MG TABLET PO SCH ×2 (09:33→21:18)
[2021-03-03] MEDS: FUROSEMIDE 40 MG TABLET PO SCH (09:33)
[2021-03-03] MEDS: INSULIN GLARGINE 100 UNITS/ML, PEN SQ-INSULIN SCH ×2 (09:34→21:19)
[2021-03-03] MEDS: ONDANSETRON 2MG/ML, 2ML IVPush PRN (11:20)
[2021-03-03] MEDS ORDERED: DIPHENHYDRAMINE 12.5MG/5ML, 10ML UDC PO PRN (12:30)
[2021-03-03] MEDS ORDERED: AMLODIPINE 5 MG TABLET PO ONE (18:00)
[2021-03-03] MEDS: DIVALPROEX 500 MG TABLET.DR PO SCH (21:18)
[2021-03-03] MEDS: ATORVASTATIN 40 MG TABLET PO SCH (21:18)
[2021-03-03] MEDS: ACETAMINOPHEN 325 MG TABLET PO PRN (21:19)
[2021-03-04 00:16] VITALS: BP 129/68
[2021-03-04 04:59] VITALS: BP 129/73
[2021-03-04 05:55] LABS: ALBUMIN 2.3 g/dL (3.4-5.0); BILIRUBIN, DIRECT 0.1 mg/dL (0.1-0.2)
[2021-03-04 05:57] LABS: BILIRUBIN,INDIRECT 0.4 mg/dL (0.0-2.0); BILIRUBIN,TOTAL 0.5 mg/dL (0.2-1.0); TOTAL PROTEIN 5.9 g/dL (6.4-8.2)
[2021-03-04] MEDS: INSULIN LISPRO 100 UNITS/ML, PEN SQ-INSULIN SCH ×4 (07:00→21:00)
[2021-03-04 07:25] VITALS: BP 119/54
[2021-03-04] MEDS: INSULIN GLARGINE 100 UNITS/ML, PEN SQ-INSULIN SCH ×2 (08:02→21:00)
[2021-03-04] MEDS: SENNA/DOCUSATE TABLET PO SCH (08:04)
[2021-03-04] MEDS: CARVEDILOL 25 MG TABLET PO SCH (08:04)
[2021-03-04] MEDS: LOSARTAN 50MG TABLET PO SCH ×2 (08:04→20:10)
[2021-03-04] MEDS: FUROSEMIDE 40 MG TABLET PO SCH (08:04)
[2021-03-04] MEDS: DIVALPROEX 500 MG TABLET.DR PO SCH ×2 (08:04→20:10)
[2021-03-04 12:00] LABS: CLOSTRIDIUM DIFFICILE ANTIGEN NEGATIVE; CLOSTRIDIUM DIFFICILE TOXIN NEGATIVE (Negative)
[2021-03-04] MEDS ORDERED: LOPERAMIDE 2 MG CAPSULE ONE (12:28)
[2021-03-04] MEDS ORDERED: DIPHENOXYLATE/ATROPINE TABLET PO PRN (12:30)
[2021-03-04] MEDS ORDERED: LOPERAMIDE 1 MG/5 ML, 10ML UDC PO PRN ×3 (12:30)
[2021-03-04] MEDS: LOPERAMIDE 2 MG CAPSULE PO PRN (12:31)
[2021-03-04 13:45] VITALS: BP 129/70
[2021-03-04 14:21] LABS: ALANINE AMINOTRANSFERASE 18 U/L (12-78); ALBUMIN 2.1 g/dL (3.4-5.0); ANION GAP 4 mmol/L (5-15); CALCIUM 8.2 mg/dL (8.5-10.1); CHLORIDE 104 mmol/L (98-107); CREATININE 1.24 mg/dL (0.55-1.02)
[2021-03-04 14:23] LABS: ALKALINE PHOSPHATASE 71 U/L (45-117); BILIRUBIN,TOTAL 0.6 mg/dL (0.2-1.0); TOTAL PROTEIN 6.3 g/dL (6.4-8.2)
[2021-03-04] MEDS ORDERED: OMNIPAQUE 350 MG/ML, 100ML BOTTLE ONE (14:25)
[2021-03-04] MEDS ORDERED: MORPHINE SULFATE 4 MG/ML, 1ML ONE (14:26)
[2021-03-04] MEDS ORDERED: MORPHINE SULFATE 4 MG/ML, 1ML IVPush ONE (14:30)
[2021-03-04] MEDS: ONDANSETRON 2MG/ML, 2ML IVPush PRN (14:34)
[2021-03-04] MEDS ORDERED: GADOTERATE 7.5 MMOL/15ML SYR ONE (15:00)
[2021-03-04 20:08] VITALS: BP 129/73
[2021-03-04] MEDS: CARVEDILOL 12.5 MG TABLET PO SCH (20:10)
[2021-03-04] MEDS: ATORVASTATIN 40 MG TABLET PO SCH (20:10)
[2021-03-04] MEDS: ACETAMINOPHEN 325 MG TABLET PO PRN (21:13)
[2021-03-05 02:16] VITALS: BP 120/67
[2021-03-05 05:56] LABS: BILIRUBIN, DIRECT 0.2 mg/dL (0.1-0.2)
[2021-03-05 06:00] LABS: BILIRUBIN,INDIRECT 0.3 mg/dL (0.0-2.0); BILIRUBIN,TOTAL 0.5 mg/dL (0.2-1.0); TOTAL PROTEIN 6.1 g/dL (6.4-8.2)
[2021-03-05] MEDS: INSULIN LISPRO 100 UNITS/ML, PEN SQ-INSULIN SCH ×4 (07:00→21:20)
[2021-03-05] MEDS: DIVALPROEX 500 MG TABLET.DR PO SCH ×2 (07:50→21:12)
[2021-03-05] MEDS: CARVEDILOL 12.5 MG TABLET PO SCH ×2 (07:50→21:13)
[2021-03-05] MEDS: FUROSEMIDE 40 MG TABLET PO SCH (07:50)
[2021-03-05] MEDS: LOSARTAN 50MG TABLET PO SCH ×2 (07:50→21:13)
[2021-03-05] MEDS: SENNA/DOCUSATE TABLET PO SCH (07:51)
[2021-03-05 07:53] VITALS: BP 117/56
[2021-03-05] MEDS: INSULIN GLARGINE 100 UNITS/ML, PEN SQ-INSULIN SCH (09:42)
[2021-03-05 12:45] VITALS: BP 124/65
[2021-03-05 18:45] VITALS: BP 141/71
[2021-03-05] MEDS ORDERED: INSULIN GLARGINE 100 UNITS/ML, PEN SQ-INSULIN SCH (21:00)
[2021-03-05] MEDS: ATORVASTATIN 40 MG TABLET PO SCH (21:13)
[2021-03-06 00:58] VITALS: BP 125/71
[2021-03-06] MEDS: ACETAMINOPHEN 325 MG TABLET PO PRN (01:05)
[2021-03-06 05:44] LABS: ANION GAP 8 mmol/L (5-15); CALCIUM 8.1 mg/dL (8.5-10.1); CHLORIDE 102 mmol/L (98-107)
[2021-03-06] MEDS: INSULIN LISPRO 100 UNITS/ML, PEN SQ-INSULIN SCH ×4 (07:00→20:34)
[2021-03-06 08:15] VITALS: BP 158/59
[2021-03-06] MEDS: SENNA/DOCUSATE TABLET PO SCH ×3 (09:00→09:27)
[2021-03-06] MEDS: FUROSEMIDE 40 MG TABLET PO SCH (09:26)
[2021-03-06] MEDS: CARVEDILOL 12.5 MG TABLET PO SCH ×2 (09:26→20:29)
[2021-03-06] MEDS: DIVALPROEX 500 MG TABLET.DR PO SCH ×2 (09:26→20:29)
[2021-03-06] MEDS: LOPERAMIDE 2 MG CAPSULE PO PRN (11:29)
[2021-03-06 13:15] VITALS: BP 145/72
[2021-03-06] MEDS: ONDANSETRON 2MG/ML, 2ML IVPush PRN (14:06)
[2021-03-06 16:52] LABS: MICROSCOPIC INDICATED
[2021-03-06 18:57] VITALS: BP 122/63
[2021-03-06 20:26] VITALS: BP 147/67
[2021-03-06] MEDS: ATORVASTATIN 40 MG TABLET PO SCH (20:29)
[2021-03-07 00:56] VITALS: BP 126/65
[2021-03-07 06:08] LABS: ANION GAP 8 mmol/L (5-15); CALCIUM 8.4 mg/dL (8.5-10.1); CHLORIDE 104 mmol/L (98-107); CREATININE 2.51 mg/dL (0.55-1.02)
[2021-03-07 06:56] VITALS: BP 133/49
[2021-03-07] MEDS: INSULIN LISPRO 100 UNITS/ML, PEN SQ-INSULIN SCH ×4 (08:44→21:00)
[2021-03-07] MEDS: DIVALPROEX 500 MG TABLET.DR PO SCH ×2 (10:17→22:41)
[2021-03-07] MEDS: SENNA/DOCUSATE TABLET PO SCH (10:18)
[2021-03-07] MEDS: CARVEDILOL 12.5 MG TABLET PO SCH ×2 (10:18→22:41)
[2021-03-07] MEDS: FUROSEMIDE 40 MG TABLET PO SCH (10:18)
[2021-03-07] MEDS: ACETAMINOPHEN 325 MG TABLET PO PRN (11:50)
[2021-03-07] MEDS ORDERED: BISACODYL 10 MG SUPP PR PRN (12:00)
[2021-03-07 12:38] VITALS: BP 131/73
[2021-03-07 19:30] VITALS: BP_SYST 147; BP_DIAS 4; BP_DIAS 49
[2021-03-07] MEDS: ATORVASTATIN 40 MG TABLET PO SCH (22:41)
[2021-03-08] VITALS (8 sets, daily range): BP systolic 138–168; BP diastolic 57–82
[2021-03-08] MEDS: LABETALOL 5MG/ML, 20ML IVPush PRN (03:50)
[2021-03-08 05:54] LABS: ANION GAP 10 mmol/L (5-15); CALCIUM 8.5 mg/dL (8.5-10.1); CHLORIDE 104 mmol/L (98-107); CREATININE 2.26 mg/dL (0.55-1.02)
[2021-03-08] MEDS ORDERED: METOPROLOL 1 MG/ML, 5ML IVPush SCH (08:00)
[2021-03-08] MEDS ORDERED: hydrALAzine 20 MG/ML, 1ML IV PRN (08:00)
[2021-03-08] MEDS ORDERED: LABETALOL 5MG/ML, 20ML IVPush PRN ×2 (08:00→11:00)
[2021-03-08] MEDS: D5%-0.45NACL+KCL 20MEQ 1,000 ML IV SCH ×2 (08:24→22:26)
[2021-03-08] MEDS: INSULIN LISPRO 100 UNITS/ML, PEN SQ-INSULIN SCH ×4 (08:25→22:10)
[2021-03-08] MEDS: SENNA/DOCUSATE TABLET PO SCH (09:00)
[2021-03-08] MEDS: VALPROATE SODIUM 500 MG in DEXTROSE 5% 100 ML IV SCH ×2 (11:26→23:37)
[2021-03-08] MEDS: MORPHINE SULFATE 4 MG/ML, 1ML IVPush PRN (11:47)
[2021-03-08] MEDS: hydrALAzine 20 MG/ML, 1ML IV SCH ×2 (15:45→22:14)
[2021-03-09] VITALS (8 sets, daily range): BP systolic 154–191; BP diastolic 65–93
[2021-03-09] MEDS: hydrALAzine 20 MG/ML, 1ML IV SCH ×3 (04:17→15:42)
[2021-03-09 05:09] LABS: BASOPHILS % (AUTO) 1 % (0-1); EOSINOPHILS % (AUTO) 0 % (1-7); LYMPHOCYTES % (AUTO) 18 % (22-44); MEAN CORPUSCULAR HEMOGLOBIN 30.9 pg (27.0-34.8); MEAN CORPUSCULAR HGB CONC 33.6 g/dL (32.4-35.8); MEAN PLATELET VOLUME 9.3 fL (7.4-10.4); MONOCYTES % (AUTO) 10 % (2-9); NEUTROPHILS % (AUTO) 71 % (42-75); PLATELET COUNT 123 x10^3/uL (130-400); RED BLOOD COUNT 4.87 x10^6/uL (3.82-5.3); RED CELL DISTRIBUTION WIDTH 15.2 % (9.6-15.2)
[2021-03-09 05:21] LABS: ALANINE AMINOTRANSFERASE 16 U/L (12-78); ANION GAP 4 mmol/L (5-15); CALCIUM 7.8 mg/dL (8.5-10.1); CHLORIDE 108 mmol/L (98-107); CREATININE 1.59 mg/dL (0.55-1.02)
[2021-03-09 05:23] LABS: ALKALINE PHOSPHATASE 67 U/L (45-117); BILIRUBIN,TOTAL 0.5 mg/dL (0.2-1.0)
[2021-03-09] MEDS: INSULIN LISPRO 100 UNITS/ML, PEN SQ-INSULIN SCH ×3 (08:00→15:49)
[2021-03-09] MEDS: VALPROATE SODIUM 500 MG in DEXTROSE 5% 100 ML IV SCH (10:27)
[2021-03-09] MEDS: D5%-0.45NACL+KCL 20MEQ 1,000 ML IV SCH (12:16)
[2021-03-09] MEDS: ONDANSETRON 2MG/ML, 2ML IVPush PRN (14:16)
[2021-03-09] MEDS ORDERED: PROMETHAZINE 25 MG/ML, 1ML IM PRN (15:30)
[2021-03-09] MEDS ORDERED: ENALAPRILAT 1.25 MG/ML, 2ML IV PRN (15:30)
[2021-03-09] MEDS ORDERED: PROCHLORPERAZINE 5 MG/ML, 2ML IVPush ONE (15:30)
[2021-03-09] MEDS ORDERED: PROCHLORPERAZINE 5 MG/ML, 2ML ONE (15:31)
[2021-03-09] MEDS ORDERED: PROCHLORPERAZINE 5 MG/ML, 2ML IVPush SCH (16:00)
[2021-03-09] MEDS ORDERED: PROCHLORPERAZINE 5 MG/ML, 2ML IVPush PRN (16:00)
[2021-03-09] MEDS: MORPHINE SULFATE 4 MG/ML, 1ML IVPush PRN ×2 (17:27→22:09)
[2021-03-09] MEDS ORDERED: MORPHINE SULFATE 4 MG/ML, 1ML IVPush PRN (17:30)
[2021-03-09] MEDS ORDERED: SCOPOLAMINE 1MG PATCH TD PRN (17:30)
[2021-03-09] MEDS ORDERED: ONDANSETRON 2MG/ML, 2ML IVPush PRN (17:30)
[2021-03-09] MEDS: SODIUM CHLORIDE FLUSH 10ML SYR IVF SCH (20:07)
[2021-03-09] MEDS: LORazepam 2 MG/ML, 1ML IVPush PRN ×2 (20:07→22:09)
[2021-03-09] MEDS ORDERED: LORazepam INTENSOL 2 MG/ML BC PRN (21:00)
[2021-03-09] MEDS ORDERED: morphine SULFATE ORAL.CONC 20 MG/ML BC PRN (21:00)
[2021-03-09] MEDS: ATROPINE OPHTH SOLN 1%, 5ML PO PRN ×2 (22:30→23:33)
[2021-03-10] MEDS: SODIUM CHLORIDE FLUSH 10ML SYR IVF SCH ×2 (07:42→21:00)
[2021-03-10] MEDS: MORPHINE SULFATE 4 MG/ML, 1ML IVPush PRN (07:43)
[2021-03-10] MEDS ORDERED: LORazepam 2 MG/ML, 1ML ONE (09:14)
[2021-03-10] MEDS ORDERED: LORazepam 2 MG/ML, 1ML IVPush PRN (09:30)
== END 2021-03-11 01:20 | DRG 64 ==
LOC: ED 15:37 → EDIP 16:12 → 5SO 20:18 → CCU 03-08 07:31 → 4NW 03-08 11:49
PROVIDERS: ADMIT Internal Medicine; ATTEND Hospitalist
PROC: 4A10X4Z Monitoring of Central Nervous Electrical Activity, External Approach (ICD-10-PCS; principal; 2021-03-03)
PROC: B3151ZZ Fluoroscopy of Bilateral Common Carotid Arteries using Low Osmolar Contrast (ICD-10-PCS; 2021-03-04)
PROC: B3181ZZ Fluoroscopy of Bilateral Internal Carotid Arteries using Low Osmolar Contrast (ICD-10-PCS; 2021-03-04)
DX: I61.1 Nontraumatic intracerebral hemorrhage in hemisphere, cortical (principal); G93.6 Cerebral edema; G93.41 Metabolic encephalopathy; J96.11 Chronic respiratory failure with hypoxia; I50.32 Chronic diastolic (congestive) heart failure; N17.9 Acute kidney failure, unspecified; G81.94 Hemiplegia, unspecified affecting left nondominant side; E24.9 Cushing's syndrome, unspecified; I67.1 Cerebral aneurysm, nonruptured; I11.0 Hypertensive heart disease with heart failure; J44.9 Chronic obstructive pulmonary disease, unspecified; E78.5 Hyperlipidemia, unspecified; Z66 Do not resuscitate; E78.00 Pure hypercholesterolemia, unspecified; E11.649 Type 2 diabetes mellitus with hypoglycemia without coma; F17.210 Nicotine dependence, cigarettes, uncomplicated; R13.10 Dysphagia, unspecified; N28.1 Cyst of kidney, acquired; Z51.5 Encounter for palliative care; G47.00 Insomnia, unspecified; E66.9 Obesity, unspecified; E11.51 Type 2 diabetes mellitus with diabetic peripheral angiopathy without gangrene; Z88.5 Allergy status to narcotic agent; Z79.899 Other long term (current) drug therapy; Z86.718 Personal history of other venous thrombosis and embolism; Z90.5 Acquired absence of kidney; Z83.3 Family history of diabetes mellitus; Z82.49 Family history of ischemic heart disease and other diseases of the circulatory system; Z80.0 Family history of malignant neoplasm of digestive organs; Z79.4 Long term (current) use of insulin; Z86.73 Personal history of transient ischemic attack (TIA), and cerebral infarction without residual deficits; Z90.710 Acquired absence of both cervix and uterus; Z68.33 Body mass index [BMI] 33.0-33.9, adult
CPT/HCPCS: 36415; 70450; 70496; 70498; 70553; 71045; 76770; 80048; 80053; 80076; 80164; 81001; 82040; 82947; 82962; 83605; 83735; 84100; 84484; 85025; 85610; 85730; 86480; 87081; 87205; 87324; 93005; 95819; 96374; 99285; G0378; J2270; J2405; J2550; Q9967; 92522-GN; 92523-GN; A9575; J0360; J0780; J1815; J2060; J3480